=== PATIENT | female | born 1975 | race Caucasian/White ===

== ENCOUNTER → 2021-07-09 | Outpatient (CLI) | payer BC ==
[2021-07-10 13:13] LABS: RHEUMATOID ARTHRITIS FACTOR <10.0 IU/mL (<14.0)
== END ==
LOC: LAB 10:23
PROVIDERS: Internal Medicine
DX: R76.8 Other specified abnormal immunological findings in serum (principal); R79.82 Elevated C-reactive protein (CRP); M25.50 Pain in unspecified joint; L98.9 Disorder of the skin and subcutaneous tissue, unspecified
CPT/HCPCS: 82728; 83520; 85652; 86140; 86200; 86431